=== PATIENT | male | born 1985 | race Caucasian/White ===

== ENCOUNTER 2025-03-25 17:45 | Observation (INO) | payer BC, SELFPAY ==
[2025-03-25 17:52] VITALS: BP 139/93; PULSE 105; RESP 19; TEMP 36.7; O2SAT 100; BMI 35.4
--- OUTSIDE RECORDS SUMMARY | 2025-03-25 17:52 | XMS_ITS | Clinical Summary ---
Author Organization [facility] Address [address] [place] [address] Care Team Providers Care Commercial Loan Collection Officer Name Role Phone Bill Walker MD Primary Care Provider [phone] Allergies No known active allergies Medications fish oil-omega-3 fatty acids 300-1,000 mg capsule Take 2 g by mouth daily. Active MAGNESIUM OXIDE ORAL Take by mouth daily. Active polycarbophil (FIBERCON) 625 mg tablet Take 625 mg by mouth daily. Active rosuvastatin (CRESTOR) 10 MG tablet Take 1 tablet (10 mg total) by mouth daily. 90 tablet 1 02/13/2024 Active Active Problems Problem Noted Date Diagnosed Date Mixed hyperlipidemia 01/09/2024 Assessment & Plan (02/17/2024 9:33 AM EDT): Improved. Lengthy discussion with patient this office visit regarding diet and lifestyle modifications, discussed in detail high fat and cholesterol foods to limit or avoid. Discussed medications for treatment this office visit, Patient to continue Crestor 10 mg daily COQ10 over the counter and repeat labs in 6 months. Last Lab values as seen below: Lab Results Component Value Date CHOL 146 02/11/2024 TRIG 91 02/11/2024 HDL 31 (L) 02/11/2024 LDL 98 02/11/2024 ALT 36 02/11/2024 AST 25 02/11/2024 Assessment & Plan (01/09/2024 1:28 PM EDT): Sever despite 20 lbs weight loss. Patient to start Crestor 10 mg daily and COQ10 over the counter and repeat labs in 6 weeks. Lengthy discussion with patient this office visit regarding diet and lifestyle modifications, discussed in detail high fat and cholesterol foods to limit or avoid. Discussed medications for treatment this office visit, Patient to start Crestor 10 mg at this time. Last Lab values as seen below: Lab Results Component Value Date CHOL 241 (H) 12/19/2023 TRIG 136 12/19/2023 HDL 36 (L) 12/19/2023 LDL 180 (H) 12/19/2023 ALT 42 11/12/2023 AST 30 11/12/2023 CHEKO (obstructive sleep apnea) 01/09/2024 Assessment & Plan (02/17/2024 9:26 AM EDT): Good compliance at 80 %. I have reviewed the objective evidence of adherence to therapy of the PAP device, they symptoms of obstructive sleep apnea have improved, the patient is benefiting from therapy and should continue use of the PAP device. Assessment & Plan (01/09/2024 1:24 PM EDT): Some improvement. At 66% compliance so far. Patient to call supply store for full mask. Encounter to discuss test results 01/09/2024 Assessment & Plan (01/09/2024 1:24 PM EDT): Labs reviewed and discussed in length. Patient to repeat Lipid and Liver panel in 6 weeks. Class 2 obesity due to exces s calories without serious comorbidity with body mass index (BMI) of 39.0 to 39.9 in adult 01/09/2024 Assessment & Plan (02/17/2024 9:26 AM EDT): Body mass index is 38.72 kg/m . Lifestyle modifications, diet, exercise were discussed face to face with the patient for 15 minutes. We assessed changes that patient can make. They were advised in changes. Discussed possibility of use of medications to assist with weight loss. Will follow up on weight. Wt Readings from Last 3 Encounters: 02/13/24 : 262 lb 3.2 oz 12/26/23 : 267 lb 6.4 oz 11/14/23 : 288 lb Assessment & Plan (01/09/2024 1:25 PM EDT): Body mass index is 39.49 kg/m . Lifestyle modifications, diet, exercise were discussed face to face with the patient for 15 minutes. We assessed changes that patient can make. They were advised in changes. Discussed possibility of use of medications to assist with weight loss. Will follow up on weight. Wt Readings from Last 3 Encounters: 12/26/23 : 267 lb 6.4 oz 11/14/23 : 288 lb 10/10/23 : 288 lb Ureteropelvic junction (UPJ) obstruction, left 0 07/14/2023 Assessment & Plan (07/14/2023 5:42 AM EST): Patient will continue IV Rocephin daily. Monitor the patient's CBC closely. Cultures has been sent. Will monitor the patient's input and output. Will check the patient's postvoid residual. Patient will continue on Flomax daily. Obesity, Class III, BMI 40-49.9 (morbid obesity) 07/14/2023 Assessment & Plan (07/14/2023 5:42 AM EST): Advised about diet and exercise. Monitor the patient closely. Body mass index is 42.83 kg/m . 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 Monitor the patient's CBC closely. Cultures has been sent. Will monitor the patient's input and output. Will check the patient's postvoid residual. Patient will continue on Flomax daily. Family History Medical History Relation Name Comments Diabetes Father Stroke Father Cancer Mother Relation Name Status Comments Father Mother Social History Tobacco Use Types Packs/Day Years Used Date Smoking Tobacco: Never Smokeless Tobacco: Never Alcohol Use Standard Drinks/Week Comments Yes 0 (1 standard drink = 0.6 oz pur e alcohol) rare Food Insecurity Answer Date Recorded Have you or a family member you live with been unable to get food when it was needed in the last year? No 07/14/2023 Sex and Gender Information Value Date Recorded Sex Assigned at Not on file Legal Sex Male 1:01 PM EDT Gender Identity Not on file Sexual Orientation Not on file Last Filed Vital Signs Vital Sign Reading Time Taken Comments Blood Pressure 126/82 02/13/2024 11:19 AM EDT Pulse 67 02/13/2024 11:19 AM EDT Temperature 36.3 C (97.3 F) 02/13/2024 11:19 AM EDT Respiratory Rate 16 02/13/2024 11:1 9 AM EDT Oxygen Saturation 90% 02/13/2024 11: 19 AM EDT Inhaled Oxygen Concentration - - Weight 118.9 kg (262 lb 3.2 oz) 024 11:19 AM EDT Height 175.3 cm (5' 9 ) 02/13/2024 11:1 9 AM EDT Body Mass Index 38.72 02/13/2024 11:19 AM EDT Plan of Treatment Health Maintenance Due Date Last Done Comments HEPATITIS C SCREENING 1985 MAGNESIUM LEVEL 1985 SDOH FOOD 1985 Social Determinants of Health 1986 BMI/BMI PERCENTILE ANNUAL MEASUREMENT 01/24/1988 All Patients [place] HIV Screening Ages 15-65 01/24/2000 Adult Tdap/Td Vaccine 01/24/2004 HEPATITIS B VACCINES (1 of 3 - 19+ 3-dose series) 01/24/2004 HPV VACCINES (1 - 3-dose SCDM series) 01/24/2012 Surgical Implant Requiring Explant 10/12/2023 07/14/2023 COVID- 19 Vaccine ( season) 2024 Depression Screening 07/14/2024 06/20/2023 BASIC METABOLIC PROFILE 11/11/2024 11/12/19 24, 07/17/2023, 07/13/2023, Additional history exists Hypertension Control 02/12/2025 02/13/2024 INFLUENZA VACCINE (#1) 2025 LIPID PANEL 02/10/2029 02/11/2024, 06/0 01/2024, 11/12/2023 SHINGRIX VACCINE SERIES (1 of 2) 2035 Pneumococcal Vaccine Aged Out No long er eligible based on patient's age to complete this topic Medical Devices Implanted Type Area Mushroom Spawn Maker Device Identifier Shelf Expiration Date Model / Serial / Lot Implant: Stent; Ureteral 6fr X 26cm Percuflex Plus - Sn/A Implanted:Qty : 1 on 07/14/2023 by Musa Farfan MD at [facility] Left: Ureter [employer] [id number] 02/07/2026 [id number] 30 / N/A / [id number] Procedures Procedure Name Priority Date/Time Associated Diagnosis Comments LIPID PROFILE Routine 02/11/2024 9:50 AM EDT Mixed hyperlipidemia COMPREHENSIVE METABOLIC PROFILE Routine 11/12/2023 10:27 AM EDT Annual physical exam from Last 3 Months or Most Recently Relevant to Health Maintenance Results * (ABNORMAL) Lipid Profile (02/11/2024 9:50 AM EDT) Pathologist [facility] Cholesterol 146 <200 mg/dL 02/11/2024 4:27 PM EDT [facility] Triglyceride 91 <200 mg/dL 02/11/2024 4:27 PM EDT [facility] HDL Cholesterol 31(L) >40 mg/dL 4 4:27 PM EDT [facility] LDL Cholesterol 98 <130 mg/dL 4 4:27 PM EDT [facility] VLDL 18 02/11/2024 4:27 PM [facility] Non HDL Cholesterol 115 02/11/2024 4:27 PM EDT [facility] Comment: (NOTE) Desirable: <130 mg/dL Above Desirable: 130-159 mg/dL Borderline High: 160-189 mg/dL High: 190-219 mg/dL Very High: >=220 mg/dL Serum 02/11/2024 9:50 AM EDT 02/11/2024 3:53 PM EDT us Bill Walker MD LAB BLOOD ORDERABLES Final Resul t [facility] [address] [place] [address] * Comprehensive Metabolic Profile (11/12/2023 10:27 AM EDT) Glucose 101 60 - 140 mg/dL 11/12/2023 4:05 PM [facility] Comment:If fasting, glucose reference range = 60 to 99 mg/dL Sodium 138 135 - 145 mmol/L 11/12/2023 4:05 PM [facility] Potassium 4.8 3.5 - 5.0 mmol/L 11/12/2023 4:05 PM [facility] Chloride 102 98 - 111 mmol/L 11/12/2023 4:05 PM [facility] Carbon Dioxide 28 21 - 35 mmol/L 11/12/2023 4:05 PM [facility] Anion Gap 8 3 - 13 11/12/2023 4:05 PM [facility] Blood Urea Nitrogen 23 10 - 25 mg/dL 11/12/2023 4:05 PM [facility] Creatinine 1.24 <1.28 mg/dL 11/12/2023 4:05 PM [facility] Comment:IDMS Standardized. AST/SGOT 30 <35 IU/L 11/12/2023 4:05 PM [facility] ALT/SGPT 42 <52 IU/L 11/12/2023 4:05 PM [facility] Alkaline Phosphatase 68 40 - 140 IU/L 11/12/2023 4:05 PM [facility] Bilirubin, total 0.5 <1.2 mg/dL 11/12/19 4:05 PM [facility] Calcium 10.2 8.2 - 10.2 mg/dL 11/12/2023 4:05 PM [facility] Protein, total, serum 7.8 6.0 - 8.3 g/dL 11/12/2023 4:05 PM [facility] Albumin 4.8 3.7 - 4.8 g/dL 11/12/2023 4:05 PM [facility] Globulin 3.0 1.7 - 3.6 g/dL 11/12/2023 4:05 PM [facility] A/G Ratio 1.6 0.9 - 1.8 11/12/2023 4:05 PM [facility] Corrected Calcium 9.9 8.7 - 10.1 mg/dL 11/12/2023 4:05 PM EDT [facility] Estimated Glomerular Filtration Rate (eGFR) 76 >60 mL/min/1.7 3m2 11/12/2023 4:05 PM EDT [facility] Comment: (NOTE) In alignment with the National Kidney Foundation and [place] [employer] Neph[employer], the estimated glomerular filtration rate (eGFR) has been refit. This equation like the former CKD-EPI eGFR equation is based on age, sex, and plasma/serum creatinine. The refit equation no longer has a race-based variable that prior equations used. The refit equation is now calculated as the CKD-EPI 2020 equation and recommended for use in adult patients. The eGFR calculation may not be reliable in metabolically unstable patients; e.g., morbid obesity, extreme muscle mass, and malnutrition. Reference: AMEE June 2021, 32 [phone]. For more information, please visit the [facility]ology Department's electronic Laboratory User's Guide, search for GFR and see the links to the National Kid[employer] Foundations GFR calculators at the bottom. Serum BLOOD SPECIMEN / Unknown 11/12/2023 10:27 AM EDT 11/12/2023 3:45 PM EDT us Heladio Yi MD LAB BLOOD ORDERABLES Final Res ult [facility] [address] [place] [address] from Last 3 Months or Most Recently Relevant to Health Maintenance Insurance [facility] Advance Directives * Full Code (Latest Code Status on File) Date Activated Date Inactivated Comments 08/15/2023 7:45 AM 08/15/2023 12:16 PM * Full Code Date Activated Date Inactivated Comments 07/14/2023 3:55 PM 07/14/2023 8:03 PM * Full Code Date Activated Date Inactivated Comments 07/14/2023 11:05 AM 07/14/2023 3:55 PM * Full Code Date Activated Date Inactivated Comments 07/14/2023 5:39 AM 07/14/2023 11:05 AM Care Teams Commercial Loan Collection Officer Relationship Specialty Start Date End Date Bill Walker MD [address] [place] [address] PCP - General Family Medicine 11/14/23
[2025-03-25 18:25] LABS: Hematocrit 51.0 % (37-53); Hemoglobin 17.10 g/dL (11.27-16.99); Mean Corpuscular HGB Conc 33.5 g/dL (30-55); Mean Corpuscular Hemoglobin 29.7 pg (27-33); Mean Corpuscular Volume 88.7 fl (82-101); Nucleated Red Blood Cells % 0 %; Platelet Count 296 10^3/cmm (157-399); Red Blood Count 5.75 10^6/uL (3.85-5.65); White Blood Count 17.40 10^3/uL (3.29-11.43)
[2025-03-25] MEDS: ondansetron 2 mg/ML SDV 2 mL 4 MG IVP (18:43)
[2025-03-25 18:45] LABS: Alanine Aminotransferase 23 U/L (0-41); Albumin Level 5.0 g/dL (3.5-5.2); Alkaline Phosphatase 118 U/L (40-130); Anion Gap 23.0 (5-19); Aspartate Amino Transferase 15 U/L (0-40); Blood Urea Nitrogen 25 mg/dL (6-20); Calcium 10.6 mg/dL (8.5-10.5); Carbon Dioxide 19 mmol/L (22-29); Chloride 102 mmol/L (98-107); Globulin 3.3 g/dL (1.3-4.6); Glucose 115 mg/dL (65-115); Lipase 24 U/L (13-60); Osmolality Calculated 295 mOsm/kg (285-295); Potassium 4.0 mmol/L (3.5-5.1); Sodium 140 mmol/L (136-145); Total Protein 8.3 g/dL (6.6-8.7)
[2025-03-25 18:49] VITALS: BP 157/106; PULSE 87; O2SAT 100
--- NOTE | 2025-03-25 18:50 | CTR_ITS ---
PROCEDURE INFORMATION: Exam: CT Abdomen And Pelvis With Contrast Exam date and time: 03/25/2025 7:01 PM Age: 40 years old Clinical indication: Rlq abd pain TECHNIQUE: Imaging protocol: Computed tomography of the abdomen and pelvis with contrast. Radiation optimization: All CT scans at this facility use at least one of these dose optimization techniques: automated exposure control; mA and/or kV adjustment per patient size (includes targeted exams where dose is matched to clinical indication); or iterative reconstruction. Contrast material: OMNI 350; Contrast volume: 100 ml; Contrast route: INTRAVENOUS (IV); COMPARISON: No relevant prior studies available. RADIATION DOSE METRICS: Total DLP (mGy-cm): 917.29 FINDINGS: Lungs: Visualized lung bases are unremarkable. Liver: No liver mass. Gallbladder and biliary ducts: The gallbladder is unremarkable. No biliary ductal dilation. Pancreas: Homogeneous enhancement of the pancreas. No main duct dilation. Spleen: No splenomegaly Adrenal glands: No adrenal nodule. Kidneys and ureters: Symmetric nephrograms. No hydronephrosis. Stomach and bowel: No dilated loops of bowel. No obstruction. No mucosal thickening. Appendix: The appendix demonstrates diffuse distention, consistent with acute appendicitis. Intraperitoneal space: No free air. No organized collection. Vasculature: Unremarkable. No abdominal aortic aneurysm. Lymph nodes: No lymphadenopathy by CT size criteria. Urinary bladder: Unremarkable as visualized. Reproductive: Unremarkable as visualized. Bones/joints: Unremarkable. No acute fracture. Soft tissues: Unremarkable. CT/CT abdomen pelvis w con* [id number] IMPRESSION: Acute appendicitis.
--- NOTE | 2025-03-25 18:50 | W.ED.ABDPA2 ---
Documented by User: DESMOND Fischer 03/25/25 22:22 HPI - Abdominal Pain General: Chief Complaint: Abdominal Pain Stated Complaint: Lower R ABD N/V Time Seen by Provider: 03/25/25 18:05 History of Present Illness: Patient is a 40-year-old male without medical issues presents to the emergency room with abrupt onset of abdominal pain, right lower quadrant, started at noon today. He feels suprapubic tenderness. No flank pain. He has a history of renal colic, however he states this feels different than previous issues with renal colic. Associated symptoms: Nausea and vomiting. No sick contacts. No fever, no chills. Last intake of food was this morning and patient had nausea, and vomiting. He had a few sips of a drink of water on the way to the emergency room however feels nauseated. Associated Symptoms: Reports nausea and vomiting; Denies chills, dysuria and fever(s) Related Data Allergies Allergy/AdvReac Type Severity Reaction Status Date / Time No Known Allergies Allergy Verified 03/25/25 17:54 Review of Systems General: Reports: 10 or more systems reviewed and unremarkable except in HPI and below Const: Denies: fever(s) or chills Eyes: Denies: change in vision or blurry vision ENMT: Denies: throat pain or mouth pain Card: Denies: chest pain or palpitations Resp: Denies: dyspnea or productive cough GI: Reports: abdominal pain, nausea and vomiting : Denies: flank pain, difficulty urinating or dysuria Musc: Denies: neck pain, back pain or extremity pain Skin/Breast: Denies: rash or pruritus Neuro: Denies: headache(s) or numbness in extremities Psych: Denies: anxiety or depression Physical Exam Const: COMMON NORMALS: no acute distress, average body habitus and patient oriented x3 HENMT: COMMON NORMALS: normocephalic and atraumatic HEAD & SCALP: normocephalic and atraumatic Eye: COMMON NORMALS: Equal, round and reactive pupils present and EOMs intact bilaterally PUPIL: Yes Equal, round and reactive pupils present Neck/C-Spine: COMMON NORMALS: full ROM and no lymphadenopathy Lymph: LYMPHATIC: no lymphadenopathy noted Chest: COMMONS NORMALS: normal inspection of the chest and normal palpation of entire chest wall Resp: COMMON NORMALS: normal respiratory effort, No retractions and clear to auscultation bilaterally AUSCULTATION: clear to auscultation bilaterally Cardio: COMMON NORMALS: regular rate RATE: regular rate GI: COMMON NORMALS: Soft to palpation AUSCULTATION: Yes Hypoactive bowel sounds present PALPATION: Yes Soft to palpation, Yes Tenderness to palpation present (GI) Details: RLQ, Yes Guarding due to palpation present (GI) in the RLQ, No Rigid due to palpation and Yes Rebound tenderness present Details: McBurney's point, periumbilical and other (Psoas, Rovsing's both positive) : COMMON NORMALS: Yes no CVA tenderness BLADDER/KIDNEY EXAM: Yes no CVA tenderness Back/Pelvis: COMMON NORMALS: no CVA tenderness Extremity: COMMON NORMALS: normal to inspection, full ROM and capillary refill normal Neuro: COMMON NORMALS: patient oriented x3 Psych: COMMON NORMALS: mental status grossly normal, Normal thought process present, cooperative and normal affect THOUGHT PROCESS: Normal thought process present Skin: COMMON NORMALS: no rashes or lesions noted, no wounds and turgor normal GENERAL SKIN EXAM: no rashes or lesions noted and turgor normal Course Consultations: Consultation #1: Spoke with Dr. Chaves that recommends admission, n.p.o., Zosyn, plan on appendectomy in a.m. Vital Signs: Vital signs: Vital Signs Temperature 98.1 F 03/25/25 17:52 Pulse Rate 87 03/25/25 18:49 Respiratory Rate 22 H 03/25/25 18:54 Blood Pressure 157/106 03/25/25 18:49 Pulse Oximetry 100 03/25/25 18:49 Oxygen Delivery Me thod Room Air 03/25/25 17:52 MDM - Abdominal Pain Medical Decision Making 40-year-old gentleman with tenderness right lower quadrant. Last intake was this morning. He had nausea and vomiting after his intake. His nausea is improved with Zofran. His right lower quadrant pain is improved with morphine. Discussed the case with on-call surgeon, Dr. Chaves, whom will remove his appendix in AM. IV fluid bolus given again. Morphine x 1 given. Pain has improved on his reevaluation. Zosyn loading dose is ordered. Medical Records I reviewed the patient's medical records. Lab Data I reviewed the patient's lab results. 03/25/25 18:18 03/25/25 18:18 Labs/Radiology: Radiology Impressions Abdomen/Pelvis CT 03/25/25 18:50 IMPRESSION: Acute appendicitis. ADDENDUM: 03/25/252019 THIS REPORT CONTAINS FINDINGS THAT MAY BE CRITICAL TO PATIENT CARE. The findings were verbally communicated via telephone conference with GINGER MCCLAIN at 8:18 PM CDT on 03/25/2025. The findings were acknowledged and understood. Laboratory Results WBC 17.40 10^3/uL (3.29-11.43) H 03/25/25 18:18 RBC 5.75 10^6/uL (3.85-5.65) H 03/25/25 18:18 Hgb 17.10 g/dL (11.27-16.99) H 03/25/25 18:18 Hct 51.0 % (37-53) 03/25/25 18:18 MCV 88.7 fl (82-101) 03/25/25 18:18 MCH 29.7 pg (27-33) 03/25/25 18:18 MCHC 33.5 g/dL (30-55) 03/25/25 18:18 RDW 13.7 % (12.1-15.1) 03/25/25 18:18 Plt Count 296 10^3/cmm (157-399) 03/25/25 18:18 MPV 10.1 fL (7.4-10.4) 03/25/25 18:18 Neut % (Auto) 89.7 % 03/25/25 18:18 Lymph % (Auto) 3.9 % 03/25/25 18:18 [place] % (Auto) 5.6 % 03/25/25 18:18 Eos % (Auto) 0.0 % 03/25/25 18:18 Baso % (Auto) 0.3 % 03/25/25 18:18 Neut # (Auto) 15.62 10^3/uL (1.8-7.7) H 03/25/25 18:18 Lymph # (Auto) 0.7 10^3/uL (0.8-4.8) L 03/25/25 18:18 [place] # (Auto) 1.0 10^3/uL (0.2-0.9) H 03/25/25 18:18 Eos # (Auto) 0.0 10^3/uL (0.0-0.8) 03/25/25 18:18 Baso # (Auto) 0.1 10^3/uL (0.0-0.1) 03/25/25 18:18 Nucleated RBC % (auto) 0 % 03/25/25 18:18 Nucleated RBCs # 0.0 /100WBC 03/25/25 18:18 Sodium 140 mmol/L (136-145) 03/25/25 18:18 Potassium 4.0 mmol/L (3.5-5.1) 03/25/25 18:18 Chloride 102 mmol/L (98-107) 03/25/25 18:18 Carbon Dioxide 19 mmol/L (22-29) L 03/25/25 18:18 Anion Gap 23.0 (5-19) H 03/25/25 18:18 BUN 25 mg/dL (6-20) H 03/25/25 18:18 Creatinine 1.2 mg/dL (0.7-1.2) 03/25/25 18:18 GFR Calculation 67.1 mL/min (90-130) L 03/25/25 18:18 Glucose 115 mg/dL (65-115) 03/25/25 18:18 Calculated Osmolality 295 mOsm/kg (285-295) 03/25/25 18:18 Calcium 10.6 mg/dL (8.5-10.5) H 03/25/25 18:18 Total Bilirubin 1.1 mg/dL (0.15-1.2) 03/25/25 18:18 AST 15 U/L (0-40) 03/25/25 18:18 ALT 23 U/L (0-41) 03/25/25 18:18 Alkaline Phosphatase 118 U/L (40-130) 03/25/25 18:18 Total Protein 8.3 g/dL (6.6-8.7) 03/25/25 18:18 Albumin 5.0 g/dL (3.5-5.2) 03/25/25 18:18 Globulin 3.3 g/dL (1.3-4.6) 03/25/25 18:18 Lipase 24 U/L (13-60) 03/25/25 18:18 Urine Color Yellow (Yellow) 03/25/25 20:07 Urine Appearance Clear (CLEAR) 03/25/25 20:07 Urine pH 6.0 (5-7) 03/25/25 20:07 Ur Specific [place] 1.056 (1.005-1.030) H 03/25/25 20:07 Urine Protein Negative (Negative) 03/25/25 20:07 Urine Glucose (UA) Negative (Normal) 03/25/25 20:07 Urine Ketones 3+ (Negative) H 03/25/25 20:07 Urine Blood Negative (Negative) 03/25/25 20:07 Urine Nitrate Negative (Negative) 03/25/25 20:07 Urine Bilirubin Negative (Negative) 03/25/25 20:07 Urine Urobilinogen 1.0 mg/dL (Negative) 03/25/25 20:07 Ur Leukocyte Esterase Negative (Negative) 03/25/25 20:07 Urine RBC 0-2 /hpf (0-2) 03/25/25 20:07 Urine WBC 0-5 /hpf (0-5) 03/25/25 20:07 Ur Squamous Epith Cells 0-5 /hpf (0-5) 03/25/25 20:07 Amorphous Sediment Not Reportable 03/25/25 20:07 Urine Bacteria None seen /hpf (NONE) 03/25/25 20:07 Hyaline Casts 0-4 /lpf H 03/25/25 20:07 No radiology studies performed this visit Discharge Plan Discharge Patient Disposition: Admitted As Inpatient Admit Provider: Isiah Chaves Clinical Impression: Acute appendicitis Qualifiers: Acute appendicitis type: unspecified acute appendicitis type Qualified Code(s): K35.80 - Unspecified acute appendicitis Condition: Stable Discharge Diet: As Directed Coding Level of Care Code ED Outside Plant Supervisor for Chg Fwd Documented by User: Kian Leon DO 03/25/25 22:34 HPI - Abdominal Pain General: Chief Complaint: Abdominal Pain Stated Complaint: Lower R ABD N/V Time Seen by Provider: 03/25/25 18:05 Related Data Allergies Allergy/AdvReac Type Severity Reaction Status Date / Time No Known Allergies Allergy Verified 03/25/25 17:54 Course Vital Signs: Vital signs: Vital Signs Temperature 98.1 F 03/25/25 17:52 Pulse Rate 87 03/25/25 18:49 Respiratory Rate 22 H 03/25/25 18:54 Blood Pressure 157/106 03/25/25 18:49 Pulse Oximetry 100 03/25/25 18:49 Oxygen Delivery Me thod Room Air 03/25/25 17:52 MDM - Abdominal Pain Medical Decision Making 40-year-old gentleman with tenderness right lower quadrant. Last intake was this morning. He had nausea and vomiting after his intake. His nausea is improved with Zofran. His right lower quadrant pain is improved with morphine. Discussed the case with on-call surgeon, Dr. Chaves, whom will remove his appendix in AM. IV fluid bolus given again. Morphine x 1 given. Pain has improved on his reevaluation. Zosyn loading dose is ordered. This patient was originally seen by Ginger Mcclain PA-C. I agree with her history, evaluation, and management. Patient is admitted to the floor. Hold over orders are written. Lab Data 03/25/25 18:18 03/25/25 18:18 Labs/Radiology: Radiology Impressions Abdomen/Pelvis CT 03/25/25 18:50 IMPRESSION: Acute appendicitis. ADDENDUM: 03/25/252019 THIS REPORT CONTAINS FINDINGS THAT MAY BE CRITICAL TO PATIENT CARE. The findings were verbally communicated via telephone conference with GINGER MCCLAIN at 8:18 PM CDT on 03/25/2025. The findings were acknowledged and understood. Laboratory Results WBC 17.40 10^3/uL (3.29-11.43) H 03/25/25 18:18 RBC 5.75 10^6/uL (3.85-5.65) H 03/25/25 18:18 Hgb 17.10 g/dL (11.27-16.99) H 03/25/25 18:18 Hct 51.0 % (37-53) 03/25/25 18:18 MCV 88.7 fl (82-101) 03/25/25 18:18 MCH 29.7 pg (27-33) 03/25/25 18:18 MCHC 33.5 g/dL (30-55) 03/25/25 18:18 RDW 13.7 % (12.1-15.1) 03/25/25 18:18 Plt Count 296 10^3/cmm (157-399) 03/25/25 18:18 MPV 10.1 fL (7.4-10.4) 03/25/25 18:18 Neut % (Auto) 89.7 % 03/25/25 18:18 Lymph % (Auto) 3.9 % 03/25/25 18:18 [place] % (Auto) 5.6 % 03/25/25 18:18 Eos % (Auto) 0.0 % 03/25/25 18:18 Baso % (Auto) 0.3 % 03/25/25 18:18 Neut # (Auto) 15.62 10^3/uL (1.8-7.7) H 03/25/25 18:18 Lymph # (Auto) 0.7 10^3/uL (0.8-4.8) L 03/25/25 18:18 [place] # (Auto) 1.0 10^3/uL (0.2-0.9) H 03/25/25 18:18 Eos # (Auto) 0.0 10^3/uL (0.0-0.8) 03/25/25 18:18 Baso # (Auto) 0.1 10^3/uL (0.0-0.1) 03/25/25 18:18 Nucleated RBC % (auto) 0 % 03/25/25 18:18 Nucleated RBCs # 0.0 /100WBC 03/25/25 18:18 Sodium 140 mmol/L (136-145) 03/25/25 18:18 Potassium 4.0 mmol/L (3.5-5.1) 03/25/25 18:18 Chloride 102 mmol/L (98-107) 03/25/25 18:18 Carbon Dioxide 19 mmol/L (22-29) L 03/25/25 18:18 Anion Gap 23.0 (5-19) H 03/25/25 18:18 BUN 25 mg/dL (6-20) H 03/25/25 18:18 Creatinine 1.2 mg/dL (0.7-1.2) 03/25/25 18:18 GFR Calculation 67.1 mL/min (90-130) L 03/25/25 18:18 Glucose 115 mg/dL (65-115) 03/25/25 18:18 Calculated Osmolality 295 mOsm/kg (285-295) 03/25/25 18:18 Calcium 10.6 mg/dL (8.5-10.5) H 03/25/25 18:18 Total Bilirubin 1.1 mg/dL (0.15-1.2) 03/25/25 18:18 AST 15 U/L (0-40) 03/25/25 18:18 ALT 23 U/L (0-41) 03/25/25 18:18 Alkaline Phosphatase 118 U/L (40-130) 03/25/25 18:18 Total Protein 8.3 g/dL (6.6-8.7) 03/25/25 18:18 Albumin 5.0 g/dL (3.5-5.2) 03/25/25 18:18 Globulin 3.3 g/dL (1.3-4.6) 03/25/25 18:18 Lipase 24 U/L (13-60) 03/25/25 18:18 Urine Color Yellow (Yellow) 03/25/25 20:07 Urine Appearance Clear (CLEAR) 03/25/25 20:07 Urine pH 6.0 (5-7) 03/25/25 20:07 Ur Specific [place] 1.056 (1.005-1.030) H 03/25/25 20:07 Urine Protein Negative (Negative) 03/25/25 20:07 Urine Glucose (UA) Negative (Normal) 03/25/25 20:07 Urine Ketones 3+ (Negative) H 03/25/25 20:07 Urine Blood Negative (Negative) 03/25/25 20:07 Urine Nitrate Negative (Negative) 03/25/25 20:07 Urine Bilirubin Negative (Negative) 03/25/25 20:07 Urine Urobilinogen 1.0 mg/dL (Negative) 03/25/25 20:07 Ur Leukocyte Esterase Negative (Negative) 03/25/25 20:07 Urine RBC 0-2 /hpf (0-2) 03/25/25 20:07 Urine WBC 0-5 /hpf (0-5) 03/25/25 20:07 Ur Squamous Epith Cells 0-5 /hpf (0-5) 03/25/25 20:07 Amorphous Sediment Not Reportable 03/25/25 20:07 Urine Bacteria None seen /hpf (NONE) 03/25/25 20:07 Hyaline Casts 0-4 /lpf H 03/25/25 20:07 Discharge Plan Discharge Patient Disposition: Admitted As Inpatient Admit Provider: Isiah Chaves Clinical Impression: Acute appendicitis Qualifiers: Acute appendicitis type: unspecified acute appendicitis type Qualified Code(s): K35.80 - Unspecified acute appendicitis Condition: Stable Discharge Diet: As Directed Coding Level of Care Code ED Outside Plant Supervisor for Gus Walden
[2025-03-25 18:54] VITALS: RESP 22
[2025-03-25] MEDS: morphine 4 mg/mL SDV 1 mL IVP ×2 (18:54→21:58)
[2025-03-25] MEDS: iohexol 350 mg/mL 500 mL Btl (per mL) IV (19:02)
[2025-03-25 20:16] LABS: Glucose Urine UA Negative (Normal); Nitrate Urine Negative (Negative)
[2025-03-25 20:21] LABS: Add Urine Microscopic? YES
[2025-03-25 20:57] LABS: Specific Gravity, Urine 1.056 (1.005-1.030)
[2025-03-25] MEDS: piperacillin-tazobactam 4.5 GM in sodium chloride 0.9% (plus) 50 ML IV (21:58)
[2025-03-25 22:52] VITALS: BP 146/89; PULSE 74; RESP 16; O2SAT 98
[2025-03-25 22:53] VITALS: BMI 35.4
[2025-03-26] VITALS (15 sets, daily range): BP systolic 103–162; BP diastolic 45–85; PULSE 70–121; RESP 16–18; TEMP 36.8–37.5; O2SAT 92–98
[2025-03-26] MEDS: morphine 4 mg/mL SDV 1 mL IVP ×2 (00:59→05:14)
[2025-03-26] MEDS: piperacillin-tazobactam 3.375 GM in sodium chloride 0.9% (plus) 50 ML IV (05:12)
--- NOTE | 2025-03-26 07:39 | ANES.PREANE2 ---
Pre-Anesthetic Assessment Height/Weight: Height 1.75 m Weight 108.409 kg Temp Pulse Resp BP Pulse Ox O2 Del Method 98.8 F 94 18 117/61 95 Room Air 03/26/25 05:00 03/26/25 07:12 03/26/25 07:12 03/26/25 07:12 03/26/25 07:12 03/26/25 07:12 Preop Diagnosis: Acute Appendicitis Operation Date: 03/26/25 08:10 Proposed Procedures p Laparoscopic Appendectomy(Not Applicable) - Isiah Chaves DO Familial anesthetic complications: none Was Beta Jacqueline taken within 24 hours: N/A Was Clonidine taken within 24 hours: N/A Last intake: Intake Last Liquid Date 03/25/25 Last Liquid Time 07:00 Last Solid Date 03/25/25 Last Solid Time 07:00 Social Alcohol (rare) and No tobacco Exam alert, oriented x 3, clear to auscultation bilaterally and regular rate & rhythm Airway Submandibular: within normal limits Cervical ROM: within normal limits Mallampati: Class II Dentition: chipped (right lower left jaw tooth) Pulmonary Sleep Apnea (cpap compliant) CV/HEM None reported None reported Hepatic None reported GI abdominal pain Metabolic None reported Musc/skel None reported Neuropsych None reported Anesthetic Plan ASA status: 2 Anesthesia: General Medications/Allergies Home Medications ?Medication ?Instructions ?Recorded ?Confirmed ?Last Taken ?Type cholecalciferol (vitamin D3) 25 25 mcg PO DAILY 03/25/25 03/25/25 03/22/25 History mcg (1,000 unit) capsule (Vitamin D3) fiber 1 cap PO DAILY 03/25/25 03/25/25 03/22/25 History omega-3 fatty acids-vitamin E 1 cap PO DAILY 03/25/25 03/25/25 03/22/25 History 1,000 mg capsule Allergies Allergy/AdvReac Type Severity Reaction Status Date / Time No Known Allergies Allergy Verified 03/25/25 17:54 Current Medications Generic Name Dose Route Start Last Admin Trade Name Freq PRN Reason Stop Dose Admin Lactated Ringer's 1,000 mls @ 125 mls/hr 03/25/25 20:30 03/25/25 23:12 Lactated Ringers IV 125 mls/hr On Hold: 03/26/25 07:11 .Q8H KAREN Administration Comment: Order held by Process Transfer Piperacillin Sod/Tazobactam 50 mls @ 12.5 mls/hr 03/26/25 05:00 03/26/25 06:53 Sod 3.375 gm/ Sodium Chloride IV Infused On Hold: 03/26/25 07:11 Q8H KAREN Infusion Comment: Order held by Process Protocol Transfer Morphine Sulfate 4 mg 03/25/25 22:52 03/26/25 05:14 Morphine 4 Mg/Ml Sdv 1 Ml IVP 4 mg On Hold: 03/26/25 07:11 Q4H PRN Administration Comment: Order held by Process SEVERE PAIN Transfer Data Anesthesia 03/25/25 18:18 03/25/25 18:18 Short CBC 03/25/25 Range/Units 18:18 WBC 17.40 H (3.29-11.43) 10^3/uL Hgb 17.10 H (11.27-16.99) g/dL Hct 51.0 (37-53) % MCV 88.7 (82-101) fl Plt Count 296 (157-399) 10^3/cmm Neut % (Auto) 89.7 % Neut # (Auto) 15.62 H (1.8-7.7) 10^3/uL BMP 03/25/25 18:18 Sodium 140 Potassium 4.0 Chloride 102 Carbon Dioxide 19 L BUN 25 H Creatinine 1.2 Glucose 115 Calcium 10.6 H Liver Function 03/25/25 Range/Units 18:18 Total Bilirubin 1.1 (0.15-1.2) mg/dL AST 15 (0-40) U/L ALT 23 (0-41) U/L Alkaline Phosphatase 118 (40-130) U/L Albumin 5.0 (3.5-5.2) g/dL Urine 03/25/25 Range/Units 20:07 Urine Color Yellow (Yellow) Urine Appearance Clear (CLEAR) Urine pH 6.0 (5-7) Ur Specific [place] 1.056 H (1.005-1.030) Urine Protein Negative (Negative) Urine Glucose (UA) Negative (Normal) Urine Ketones 3+ H (Negative) Urine Nitrate Negative (Negative) Urine Bilirubin Negative (Negative) Ur Leukocyte Esterase Negative (Negative) Urine RBC 0-2 (0-2) /hpf Urine WBC 0-5 (0-5) /hpf
--- NOTE | 2025-03-26 07:41 | PM.HP ---
Providers/Chief Complaint Admitting Physician: Isiah Chaves DO Chief Complaint: Lower R ABD N/V History of Present Illness Sarbjit Whitehead is a 40 year old male With a chief complaint of abdominal pain and this started periumbilically and migrated to the right lower quadrant over the last 48 hours. He states the pain is sharp and constant and he describes it as stabbing in nature. He states that the pain is a 4-6 out of 10 in severity. He states that he has been slightly nauseous with the pain but denies any emesis. He denies any changes in his bowel movements. He denies any blood in the stool. States that he is not hungry. He denies any urinary complaints. No other complaints at this time. Review of Systems General: Reports: 10 or more systems reviewed and unremarkable except in HPI and below Const: Denies: fever(s) or chills Eyes: Denies: change in vision or blurry vision ENMT: Denies: throat pain or mouth pain Card: Denies: chest pain or palpitations Resp: Denies: dyspnea or productive cough GI: Reports: abdominal pain, nausea and vomiting : Denies: flank pain, difficulty urinating or dysuria Musc: Denies: neck pain, back pain or extremity pain Skin/Breast: Denies: rash or pruritus Neuro: Denies: headache(s) or numbness in extremities Psych: Denies: anxiety or depression Medications/Allergies Home Medications ?Medication ?Instructions ?Recorded ?Confirmed ?Last Taken ?Type cholecalciferol (vitamin D3) 25 25 mcg PO DAILY 03/25/25 03/25/25 03/22/25 History mcg (1,000 unit) capsule (Vitamin D3) fiber 1 cap PO DAILY 03/25/25 03/25/25 03/22/25 History omega-3 fatty acids-vitamin E 1 cap PO DAILY 03/25/25 03/25/25 03/22/25 History 1,000 mg capsule Allergies Allergy/AdvReac Type Severity Reaction Status Date / Time No Known Allergies Allergy Verified 03/25/25 17:54 Vitals/I&O/Wt Last Vital Signs Temp 98.8 F 03/26/25 05:00 Pulse 94 03/26/25 07:12 Resp 18 03/26/25 07:12 BP 117/61 03/26/25 07:12 Pulse Ox 95 03/26/25 07:12 O2 Del Method Room Air 03/26/25 07:12 03/25/25 03/26/25 03/26/25 22:59 06:59 14:59 Intake Total 2049 Balance 2049 50 / 2099 Weight last 48 hrs Weight 239 lb Weight 239 lb 11.2 oz Weight 240 lb Physical Exam Narrative: General alert and oriented x 3 cardiovascular regular rate and rhythm pulmonary clear to auscultation bilaterally abdomen soft mildly distended positive tender to palpation in the right lower quadrant positive McBurney's no rebound rigidity or guarding. Extremities distal pulses intact bilaterally no swelling or edema. Neurologically intact Data 03/25/25 18:18 03/25/25 18:18 A&P Assessment and plan 1. Acute appendicitis: Will plan 4 OR this morning for laparoscopic appendectomy. Continue IV antibiotics?Zosyn started in the ER. Continue fluid IV resuscitation as needed. NPO. Serial abdominal exams. Discussed all benefits and risks regarding surgery and conservative management. All questions were sought and answered and the patient agreed to proceed with the plan as discussed. All risks and benefits to surgery were discussed and all potential complications were discussed and he agrees to proceed with the plan. PDMP PDMP Reviewed: Not Reviewed Attestations Medical Necessity Statement*: Patient to be admitted for surgery for laparoscopic appendectomy Coding Level of Care Code Acute Code for [facility] Diagnoses Acute appendicitis K35.80
[2025-03-26] MEDS: ceFAZolin 2,000 mg SDV 2000 MG IVP (08:00)
[2025-03-26] MEDS: BUPivacaine-epi 0.5% 10 ML INJ INJECTION (08:15)
--- NOTE | 2025-03-26 08:30 | W.PM.BPONFUL ---
Pathology: [] Implant(s): [] Tourniquet Time: [] IV Fluids: [] Urine Output: [] Anesthesia: [] Complications: [] Brief history/preop diagnosis: [This is a 40-year-old male with chief complaint of abdominal pain and on workup was found to have acute appendicitis and elected to perform laparoscopic appendectomy.] Postoperative diagnosis: Same Full operative report: [Patient was brought back to the operative room placed on the operating table in supine position with left arm tucked Morales catheter was placed and the abdomen is prepped and draped in usual sterile fashion after general anesthesia was induced. Timeout was completed verifying correct patient procedure site positioning and equipment needed prior to beginning procedure. Using 11 blade scalpel a small incision was made superior to the umbilicus in a transverse fashion and using a 10 mm Optiview trocar and laparoscope the abdomen was entered on direct visualization. The abdomen was then insufflated to 1215 mmHg which patient tolerated well patient was then placed in slight Trendelenburg position with right side up to help visualize the right lower quadrant. 2 more laparoscopic ports were then placed a 5 mm suprapubic port and a 12 mm left lower quadrant port were then placed under direct realization. Using laparoscopic graspers the appendix was identified and it was found that the tip of the appendix had perforated and was slightly purulent in nature in the pelvis. This was dissected completely free and a window was made at the junction between the base of the appendix and the cecum. At this point a laparoscopic ABRAN stapler was used to transect the base of the appendix and another blue load was used to transect the vascular pedicle and the appendix was placed in a endoscopic retrieval bag and removed from the field to the left lower quadrant port. It was sent to pathology for further evaluation. The abdomen was then irrigated and no bleeding and no further purulence was noted. At this point the abdomen was then allowed to desufflate and all trocars removed under direct visualization with no bleeding. The fascia of the 12 mm periumbilical and left lower quadrant ports were closed using an 0 Vicryl suture in an inverted interrupted fashion. The skin was then closed with 4-0 Monocryl suture in a subdermal fashion. The Morales catheter was removed at the end of the procedure the patient tolerated the procedure well and was taken the postanesthesia care unit in stable condition.] Condition: [Stable] Dispostion: [Going home]
--- OUTSIDE RECORDS SUMMARY | 2025-03-26 10:02 | XMS_ITS | Clinical Summary ---
Author Organization [facility] Address [address] [place] [address] Care Team Providers Care Eligibility Clerk Name Role Phone Bill Walker MD Primary Care Provider [phone] Allergies No known active allergies Medications fish [...] BMI/BMI PERCENTILE ANNUAL MEASUREMENT 01/24/1988 All Patients Hi Hat HIV Screening Ages 15-65 01/24/2000 Adult Tdap/Td [...] this topic Medical Devices Implanted Type Area Tobacco Packer Device Identifier Shelf Expiration Date Model / Serial / Lot Implant: Stent; Ureteral 6fr X 26cm Percuflex Plus - Sn/A Implanted:Qty : 1 on 07/14/2023 by Musa Farfan MD at [facility] Left: Ureter [employer] [id number] 02/07/2026 [id number] 30 / N/A / [id number] Procedures Procedure Name Priority Date/Time Associated Diagnosis Comments LIPID PROFILE Routine 02/11/2024 9:50 AM EDT Mixed hyperlipidemia COMPREHENSIVE METABOLIC PROFILE Routine 11/12/2023 10:27 AM EDT Annual physical exam from Last 3 Months or Most Recently Relevant to Health Maintenance Results * (ABNORMAL) Lipid Profile (02/11/2024 9:50 AM EDT) Pathologist [facility] Cholesterol 146 <200 mg/dL 02/11/2024 4:27 PM EDT [facility] Triglyceride 91 <200 mg/dL 02/11/2024 4:27 PM EDT [facility] HDL Cholesterol 31(L) >40 mg/dL 4 4:27 PM EDT [facility] LDL Cholesterol 98 <130 mg/dL 4 4:27 PM EDT [facility] VLDL 18 02/11/2024 4:27 PM [facility] Non HDL Cholesterol 115 02/11/2024 4:27 PM EDT [facility] Comment: (NOTE) Desirable: <130 mg/dL Above Desirable: 130-159 mg/dL Borderline High: 160-189 mg/dL High: 190-219 mg/dL Very High: >=220 mg/dL Serum 02/11/2024 9:50 AM EDT 02/11/2024 3:53 PM EDT us Bill Walker MD LAB BLOOD ORDERABLES Final Resul t [facility] [address] [place] [address] * Comprehensive Metabolic Profile (11/12/2023 10:27 AM EDT) Glucose 101 60 - 140 mg/dL 11/12/2023 4:05 PM [facility] Comment:If fasting, glucose reference range = 60 to 99 mg/dL Sodium 138 135 - 145 mmol/L 11/12/2023 4:05 PM [facility] Potassium 4.8 3.5 - 5.0 mmol/L 11/12/2023 4:05 PM [facility] Chloride 102 98 - 111 mmol/L 11/12/2023 4:05 PM [facility] Carbon Dioxide 28 21 - 35 mmol/L 11/12/2023 4:05 PM [facility] Anion Gap 8 3 - 13 11/12/2023 4:05 PM [facility] Blood Urea Nitrogen 23 10 - 25 mg/dL 11/12/2023 4:05 PM [facility] Creatinine 1.24 <1.28 mg/dL 11/12/2023 4:05 PM [facility] Comment:IDMS Standardized. AST/SGOT 30 <35 IU/L 11/12/2023 4:05 PM [facility] ALT/SGPT 42 <52 IU/L 11/12/2023 4:05 PM [facility] Alkaline Phosphatase 68 40 - 140 IU/L 11/12/2023 4:05 PM [facility] Bilirubin, total 0.5 <1.2 mg/dL 11/12/19 4:05 PM [facility] Calcium 10.2 8.2 - 10.2 mg/dL 11/12/2023 4:05 PM [facility] Protein, total, serum 7.8 6.0 - 8.3 g/dL 11/12/2023 4:05 PM [facility] Albumin 4.8 3.7 - 4.8 g/dL 11/12/2023 4:05 PM [facility] Globulin 3.0 1.7 - 3.6 g/dL 11/12/2023 4:05 PM [facility] A/G Ratio 1.6 0.9 - 1.8 11/12/2023 4:05 PM [facility] Corrected Calcium 9.9 8.7 - 10.1 mg/dL 11/12/2023 4:05 PM EDT [facility] Estimated Glomerular Filtration Rate (eGFR) 76 >60 mL/min/1.7 3m2 11/12/2023 4:05 PM EDT [facility] Comment: (NOTE) In alignment with the National Kidney Foundation and [employer]ph[employer], the estimated glomerular filtration [...] and malnutrition. Reference: AMEE June 2021, 32 (57) [phone]. For more information, please visit the [facility] Pathology Department's electronic Laboratory User's Guide, search for GFR and see the links to the National Kidney Foundations GFR calculators at the bottom. Serum BLOOD SPECIMEN / Unknown 11/12/2023 10:27 AM EDT 11/12/2023 3:45 PM EDT us Heladio Yi MD LAB BLOOD ORDERABLES Final Res ult [facility] [address] [place] [address] from Last 3 Months or Most Recently Relevant to Health Maintenance Insurance [employer] Advance Directives * Full Code (Latest Code [...] 5:39 AM 07/14/2023 11:05 AM Care Teams Eligibility Clerk Relationship Specialty Start Date End Date Bill Walker MD [address] [place] [address] PCP - General Family Medicine 11/14/23
--- NOTE | 2025-03-26 11:49 | PC.CHAP ---
Pastoral Care Encounter/Spiritual Assessment Type of Contact [x] Declined mounter visit [] Patient/Family/Request visit [] Outpatient visit [] Follow-up visit [] Physician referral [] Code/Alert [x] Routine visit [] Staff referral [] Actively dying [] Patient sleeping [] Family support [] [] Out of room [] Palliative care [] [] Receiving care in room [] Pre-surgical visit [] Trauma [] Long length of stay [] ICU visit [] Other: Relational/Emotional Strength [] Patient feels connected with others/family/visitors/staff [] Distress [] Loneliness/isolation [] Abandonment Spirituality of Patient [] Person of Margarette [] Attends Hinduism of their Marg[place] [] Believes in Prayer [] Reads Bible or Gnosticism materials [] There are Spiritual issues to be addressed Conveyor Belt Operator Interventions [] Prayer [] Active listening [] Non-anxious presence [] Spiritual/emotional support [] Crisis/trauma care [] Spiritual counseling [] Bereavement support [] Provided bereavement packet [] Provided Bible/devotional materials [] Provided toy/stuffed animal, coloring book to patient or family member [] Provided Communion [] Anointing/[place] [] Salvation [] Completed spiritual assessment [] Other: Impact on Illness or Injury [] Angry [] Fearful [] Anxious [] Often cries [] Exhaustion [] Unable to work [] Unable to attend taoist [] Unable to walk/stand [] Unable to read [] Unable to drive [] Unable to eat/drink [] Unable to sleep [] Unable to be with family [] Patient intubated [] Other: Summary Time spent with patient
--- NOTE | 2025-06-02 11:49 | PM.DCS ---
Discharge Providers Date of Admission: 03/25/25 21:02 Date of Discharge: June 02, 2025 Attending Provider at Admission: Isiah Chaves DO Attending Provider at Discharge: Isiah Chaves DO Diagnoses at Discharge Discharge Diagnosis 1. Acute appendicitis: Details from hospital stay: This a 40-year-old male with chief complaint of right lower quad abdominal pain was found to have acute appendicitis he underwent surgery for laparoscopic appendectomy and did well. Tolerated diet afterwards and received 1 dose of antibiotics and was sent home with a 10-day course of antibiotics with no complaints no concerns. Reason for Visit Reason for Visit: Lower R ABD N/V Hospital Course Hospital Course Please see hospital notes and operative report for full hospital course. It was unremarkable he did well. Physical Exam Narrative: General alert and oriented x 3 cardiovascular regular rate and rhythm pulmonary clear to auscultation bilaterally abdomen soft mildly distended positive tender to palpation in the right lower quadrant positive McBurney's no rebound rigidity or guarding. Extremities distal pulses intact bilaterally no swelling or edema. Neurologically intact Urinary Catheter Management: Morales: Cath Placed During This Visit: yes, but has since been removed by the nurse Urinary Catheter Date of Insertion: 03/26/25 Urinary Catheter Time of Insertion: 08:00 Date Urinary Catheter Removed: 03/26/25 Time Urinary Catheter Discontinued: 08:31 Discharge Data Studies Completed and Pending Completed Studies During Hospitalization Category Date Time Status CT abdomen pelvis w con* [id number] Stat Cat Scan 03/25/25 18:50 Completed Radiology Impressions Abdomen/Pelvis CT 03/25/25 18:50 IMPRESSION: Acute appendicitis. ADDENDUM: 03/25/252019 THIS REPORT CONTAINS FINDINGS THAT MAY BE CRITICAL TO PATIENT CARE. The findings were verbally communicated via telephone conference with GINGER MCCLAIN at 8:18 PM CDT on 03/25/2025. The findings were acknowledged and understood. Laboratory Results WBC 17.40 10^3/uL (3.29-11.43) H 03/25/25 18:18 RBC 5.75 10^6/uL (3.85-5.65) H 03/25/25 18:18 Hgb 17.10 g/dL (11.27-16.99) H 03/25/25 18:18 Hct 51.0 % (37-53) 03/25/25 18:18 MCV 88.7 fl (82-101) 03/25/25 18:18 MCH 29.7 pg (27-33) 03/25/25 18:18 MCHC 33.5 g/dL (30-55) 03/25/25 18:18 RDW 13.7 % (12.1-15.1) 03/25/25 18:18 Plt Count 296 10^3/cmm (157-399) 03/25/25 18:18 MPV 10.1 fL (7.4-10.4) 03/25/25 18:18 Neut % (Auto) 89.7 % 03/25/25 18:18 Lymph % (Auto) 3.9 % 03/25/25 18:18 Barron % (Auto) 5.6 % 03/25/25 18:18 Eos % (Auto) 0.0 % 03/25/25 18:18 Baso % (Auto) 0.3 % 03/25/25 18:18 Neut # (Auto) 15.62 10^3/uL (1.8-7.7) H 03/25/25 18:18 Lymph # (Auto) 0.7 10^3/uL (0.8-4.8) L 03/25/25 18:18 Barron # (Auto) 1.0 10^3/uL (0.2-0.9) H 03/25/25 18:18 Eos # (Auto) 0.0 10^3/uL (0.0-0.8) 03/25/25 18:18 Baso # (Auto) 0.1 10^3/uL (0.0-0.1) 03/25/25 18:18 Nucleated RBC % (auto) 0 % 03/25/25 18:18 Nucleated RBCs # 0.0 /100WBC 03/25/25 18:18 Sodium 140 mmol/L (136-145) 03/25/25 18:18 Potassium 4.0 mmol/L (3.5-5.1) 03/25/25 18:18 Chloride 102 mmol/L (98-107) 03/25/25 18:18 Carbon Dioxide 19 mmol/L (22-29) L 03/25/25 18:18 Anion Gap 23.0 (5-19) H 03/25/25 18:18 BUN 25 mg/dL (6-20) H 03/25/25 18:18 Creatinine 1.2 mg/dL (0.7-1.2) 03/25/25 18:18 GFR Calculation 67.1 mL/min (90-130) L 03/25/25 18:18 Glucose 115 mg/dL (65-115) 03/25/25 18:18 Calculated Osmolality 295 mOsm/kg (285-295) 03/25/25 18:18 Calcium 10.6 mg/dL (8.5-10.5) H 03/25/25 18:18 Total Bilirubin 1.1 mg/dL (0.15-1.2) 03/25/25 18:18 AST 15 U/L (0-40) 03/25/25 18:18 ALT 23 U/L (0-41) 03/25/25 18:18 Alkaline Phosphatase 118 U/L (40-130) 03/25/25 18:18 Total Protein 8.3 g/dL (6.6-8.7) 03/25/25 18:18 Albumin 5.0 g/dL (3.5-5.2) 03/25/25 18:18 Globulin 3.3 g/dL (1.3-4.6) 03/25/25 18:18 Lipase 24 U/L (13-60) 03/25/25 18:18 Urine Color Yellow (Yellow) 03/25/25 20:07 Urine Appearance Clear (CLEAR) 03/25/25 20:07 Urine pH 6.0 (5-7) 03/25/25 20:07 Ur Specific [place] 1.056 (1.005-1.030) H 03/25/25 20:07 Urine Protein Negative (Negative) 03/25/25 20:07 Urine Glucose (UA) Negative (Normal) 03/25/25 20:07 Urine Ketones 3+ (Negative) H 03/25/25 20:07 Urine Blood Negative (Negative) 03/25/25 20:07 Urine Nitrate Negative (Negative) 03/25/25 20:07 Urine Bilirubin Negative (Negative) 03/25/25 20:07 Urine Urobilinogen 1.0 mg/dL (Negative) 03/25/25 20:07 Ur Leukocyte Esterase Negative (Negative) 03/25/25 20:07 Urine RBC 0-2 /hpf (0-2) 03/25/25 20:07 Urine WBC 0-5 /hpf (0-5) 03/25/25 20:07 Ur Squamous Epith Cells 0-5 /hpf (0-5) 03/25/25 20:07 Amorphous Sediment Not Reportable 03/25/25 20:07 Urine Bacteria None seen /hpf (NONE) 03/25/25 20:07 Hyaline Casts 0-4 /lpf H 03/25/25 20:07 Vitals Last Vital Signs Temp 98.3 F 03/26/25 10:20 Pulse 70 03/26/25 10:20 Resp 16 03/26/25 10:20 BP 103/57 03/26/25 10:20 Pulse Ox 95 03/26/25 10:20 O2 Del Method Room Air 03/26/25 10:20 O2 Flow Rate 4 03/26/25 08:53 Discharge Plan Discharge Patient Disposition: Home Condition: Stable Prescriptions: New amoxicillin-pot clavulanate [Augmentin] 500-125 mg tablet 1 tab PO BID Qty: 20 0RF hydrocodone-acetaminophen 5-325 mg Tablet 1 tab PO Q6H PRN (Reason: Moderate Pain) Qty: 20 0RF Continued fiber Capsule 1 cap PO DAILY cholecalciferol (vitamin D3) [Vitamin D3] 25 mcg (1,000 unit) Capsule 25 mcg PO DAILY omega-3 fatty acids-vitamin E 1,000 mg Capsule 1 cap PO DAILY Discharge Order = DC NOW: Discharge Order (Routine); Ordered 03/26/25 Ordered By: Isiah Chaves Discharge Diet: As Directed Discharge Activity: Limit activity as instructed Patient Instructions: Hydrocodone/Acetaminophen (By mouth) (Vicodin, Boyd), Amoxicillin/Clavulanate Potassium (By mouth) (Augmentin, Augmentin..., Appendicitis (GEN), Acute Wound Care (DC), Laparoscopic Appendectomy (DC), Opioid Safety, Post Anesthesia Care, Patient Portal & Dean Instructions Activity Restrictions/Additional Instructions: Please arrange an appointment to see your primary care provider once you get back home. This appointment should be made to see them within 2 weeks. Discharge Attestations Time Spent in Discharge Care*: less than 30 min Quality Metrics Clinical Quality Measures [ No reported AMI, CVA or VTE this stay] Coding Level of Care Code Acute Code for [facility] Fwd Diagnoses Acute appendicitis K35.80 Acute appendicitis type: unspecified acute appendicitis type
== END 2025-03-26 13:05 | disposition home or self-care (01) ==
LOC: ER 18:52 → MEDSURG 22:10
PROVIDERS: Admitting Provider Surgery; Emergency Provider Physician Assistant; Visit Provider Surgery
PROC: 0DTJ4ZZ Resection of Appendix, Percutaneous Endoscopic Approach (ICD-10-PCS; CPT 44970; principal; 2025-03-26 08:00)
DX: K35.33 Acute appendicitis with perforation, localized peritonitis, and gangrene, with abscess (principal); G47.33 Obstructive sleep apnea (adult) (pediatric); Z99.89 Dependence on other enabling machines and devices
CPT/HCPCS: 44970; 36415; 51702; 74177; 80053; 81001; 83690; 85025; 88304; 96365; 96366; 96375; 96376; 99285; G0378; J0690; J1100; J1885; J2270; J2405; J2543; J2704; J3010; J3490; J7030; J7120; J9999